=== PATIENT | female | born 1945 | race Caucasian/White ===

== ENCOUNTER 2020-12-26 13:00 | Outpatient (CLI) | payer MEDICARE, BC | END 2020-12-26 23:59 | disposition home health service (06) | LOC: WOU 13:00 | PROVIDERS: ATTEND Specialist | DX: L97.512 Non-pressure chronic ulcer of other part of right foot with fat layer exposed (principal); T81.89XS Other complications of procedures, not elsewhere classified, sequela; I89.0 Lymphedema, not elsewhere classified; E11.9 Type 2 diabetes mellitus without complications; I10 Essential (primary) hypertension; M54.5 Low back pain; Z79.899 Other long term (current) drug therapy | CPT/HCPCS: 87070; 87075; 87077; 87186; A6209; G0463 ==

== ENCOUNTER 2021-01-02 13:00 | Outpatient (CLI) | payer MEDICARE, BC | END 2021-01-02 23:59 | disposition home or self-care (01) | LOC: WOU 13:00 | PROVIDERS: ATTEND Specialist | DX: T81.89XS Other complications of procedures, not elsewhere classified, sequela (principal); L97.512 Non-pressure chronic ulcer of other part of right foot with fat layer exposed; I89.0 Lymphedema, not elsewhere classified; E11.9 Type 2 diabetes mellitus without complications; M54.5 Low back pain; Z79.899 Other long term (current) drug therapy | CPT/HCPCS: 11042; A6209 ==

== ENCOUNTER 2021-01-09 12:50 | Outpatient (CLI) | payer MEDICARE, BC ==
[2021-01-09] MEDS ORDERED: COLLAGENASE 5 GM TUBE UD TP ONE (14:08)
== END 2021-01-09 23:59 | disposition home or self-care (01) ==
LOC: WOU 12:50
PROVIDERS: ATTEND Specialist
DX: T81.89XS Other complications of procedures, not elsewhere classified, sequela (principal); L97.512 Non-pressure chronic ulcer of other part of right foot with fat layer exposed; I87.312 Chronic venous hypertension (idiopathic) with ulcer of left lower extremity; L97.828 Non-pressure chronic ulcer of other part of left lower leg with other specified severity; I89.0 Lymphedema, not elsewhere classified; I87.2 Venous insufficiency (chronic) (peripheral); E11.9 Type 2 diabetes mellitus without complications; M54.5 Low back pain; Z79.899 Other long term (current) drug therapy
CPT/HCPCS: 11042; 87070; 87075; 87077; 87186; A6209

== ENCOUNTER 2021-01-23 13:00 | Outpatient (CLI) | payer MEDICARE, BC ==
[2021-01-23] MEDS ORDERED: LIDOCAINE SOLN 4% 50 ML BOTTLE ONE (13:20)
== END 2021-01-23 23:59 | disposition home or self-care (01) ==
LOC: WOU 13:00
PROVIDERS: ATTEND Specialist
DX: T81.89XS Other complications of procedures, not elsewhere classified, sequela (principal); L97.512 Non-pressure chronic ulcer of other part of right foot with fat layer exposed; I89.0 Lymphedema, not elsewhere classified; I87.2 Venous insufficiency (chronic) (peripheral); M54.5 Low back pain; Z79.899 Other long term (current) drug therapy
CPT/HCPCS: G0463

== ENCOUNTER 2021-02-06 13:00 | Outpatient (CLI) | payer MEDICARE, BC | END 2021-02-06 23:59 | disposition home or self-care (01) | LOC: WOU 13:00 | PROVIDERS: ATTEND Specialist | DX: T81.89XS Other complications of procedures, not elsewhere classified, sequela (principal); L97.512 Non-pressure chronic ulcer of other part of right foot with fat layer exposed; I89.0 Lymphedema, not elsewhere classified; I87.2 Venous insufficiency (chronic) (peripheral); M54.5 Low back pain; Z79.899 Other long term (current) drug therapy | CPT/HCPCS: 11042 ==

== ENCOUNTER 2021-02-20 13:10 | Outpatient (CLI) | payer MEDICARE, BC ==
[2021-02-20] MEDS ORDERED: LIDOCAINE SOLN 4% 50 ML BOTTLE ONE (13:34)
== END 2021-02-20 23:59 | disposition home or self-care (01) ==
LOC: WOU 13:10
PROVIDERS: ATTEND Specialist
DX: T81.89XS Other complications of procedures, not elsewhere classified, sequela (principal); L97.512 Non-pressure chronic ulcer of other part of right foot with fat layer exposed; I89.0 Lymphedema, not elsewhere classified; I87.2 Venous insufficiency (chronic) (peripheral); M54.5 Low back pain; I10 Essential (primary) hypertension; Z79.899 Other long term (current) drug therapy
CPT/HCPCS: 11042

== ENCOUNTER 2021-03-06 13:00 | Outpatient (CLI) | payer MEDICARE, BC | END 2021-03-06 23:59 | disposition home or self-care (01) | LOC: WOU 13:00 | PROVIDERS: ATTEND Specialist | DX: L97.512 Non-pressure chronic ulcer of other part of right foot with fat layer exposed (principal); T81.89XS Other complications of procedures, not elsewhere classified, sequela; I89.0 Lymphedema, not elsewhere classified; M54.5 Low back pain; I87.2 Venous insufficiency (chronic) (peripheral); I10 Essential (primary) hypertension; Z83.3 Family history of diabetes mellitus | CPT/HCPCS: G0463 ==